=== PATIENT | female | born 2000 | race Caucasian/White ===

== ENCOUNTER 2018-11-18 13:27 | Emergency (ER) | payer BC ==
--- NOTE | 2018-11-18 15:25 | EDPHY ---
H & P Time Seen by Provider: 11/18/18 14:54 HPI/ROS: CHIEF COMPLAINT: Left eye swelling HISTORY OF PRESENT ILLNESS: Patient is a 17-year-old female presents emergency department with left eye swelling. The patient states that she had a mechanical fall on Saturday. She walked on ice with her hands in her pockets. She fell forward striking the left side of her face. She was not seen by healthcare provider that time. She did not lose consciousness. She has had minimal headache. Her facial pain has been improving. She has not had any nausea or vomiting. She denies visual change or double vision. She has no focal weakness or numbness. The patient was concerned because she blew her nose today and a small amount of air seen to accumulate subcutaneously under her left eyelid. She has no new complaints at this time. No visual change. Patient has had no sinus pain. No increased nasal drainage. No fevers or chills REVIEW OF SYSTEMS: 10 systems were reveiwed and are negative with the exception of the elements mentioned in the history of present illness. Smoking Status: Never smoked Physical Exam: Vitals noted General Appearance: Alert and no distress. Head/face: PERRLA. Extraocular movements are intact. Patient has swelling over her left face surrounding her eye. There is no crepitus. No significant swelling. There is [place] bruising discoloration. No visible deformity. The nose is not tender. There is no septal hematoma.. Neck: No spinal tenderness palpation. Nexus negative. Respiratory: No respiratory distress. Cardiac: regular rate and rhythm. Extremities: Full range of motion, normal appearing. Skin: No rashes or lesions. Neuro: Alert. Normal mood and affect. Normal neuro exam. Constitutional: Initial Vital Signs Temperature (C) 36.4 C 11/18/18 13:52 Heart Rate 65 11/18/18 13:52 Respiratory Rate 16 11/18/18 13:52 Blood Pressure 119/82 H 11/18/18 13:52 O2 Sat (%) 96 11/18/18 13:52 O2 Delivery Mode Room Air Allergies/Adverse Reactions: No Known Allergies Allergy (Unverified 11/18/18 13:55) Home Medications: Medication Instructions Recorded NK [No Known Home Meds] 11/18/18 Medical Decision Making ED Course/Re-evaluation: In the emergency department I discussed possible etiologies with the patient. I answered all her questions. At this time her facial bones appear stable. She has no gross deformity. There is no physical exam findings of entrapment. She has no focal neurologic deficits. I offered her CT imaging as well as conservative care without imaging at this time and ENT follow-up. The patient would prefer not to have CT imaging at this time. She understands risks and benefits of imaging. She will return with worsening symptoms. Differential Diagnosis: My differential includes but is not limited to facial fracture, sinus fracture, eye muscle entrapment, Departure - Departure Disposition: Home, Routine, Self-Care Clinical Impression: Facial contusion Qualifiers: Encounter type: initial encounter Qualified Code(s): S00.83XA - Contusion of other part of head, initial encounter Condition: Good Instructions: Facial Contusion (ED) Additional Instructions: Return with increasing facial swelling, blurred vision, fever, or any other concerns. Call to make an appointment with ENT. Referrals: Hermilo Evans MD [Medical Doctor] - 5-7 days, call for appt.
[2018-11-18 15:39] VITALS: BP 116/84
== END 2018-11-18 15:39 | disposition home or self-care (01) ==
DX: S00.83XA Contusion of other part of head, initial encounter (principal); W00.0XXA Fall on same level due to ice and snow, initial encounter; Y93.01 Activity, walking, marching and hiking; Y92.480 Sidewalk as the place of occurrence of the external cause